=== PATIENT | female | born 1980 | race Caucasian/White ===

== ENCOUNTER 2017-04-07 17:45 | Inpatient (IN) | END 2017-04-10 14:45 | disposition home or self-care (01) | DRG 766 ==

== ENCOUNTER 2018-10-31 09:00 | Emergency (ER) | payer MEDICAID ==
[~2018-10-31] VITALS: Ht 142.2 cm; Wt 56.1 kg
[~2018-10-31 09:00] MED LIST: DOCU-144 PO; HYDR26CR PR; PNV11TAB PO; POLY17PO6 PO
[2018-10-31 09:06] VITALS: BP 112/73; PULSE 74; RESP 18; Ht 142.2 cm; Wt 56.1 kg
== END 2018-10-31 10:44 | disposition home or self-care (01) ==
LOC: FTE 09:00
DX: K64.9 Unspecified hemorrhoids (principal)
CPT/HCPCS: 99282